=== PATIENT | female | born 1980 | race Caucasian/White ===

== ENCOUNTER 2017-02-09 22:22 | Emergency (ER) | payer MEDICAID | END 2017-02-10 00:45 | disposition home or self-care (01) | LOC: D.ER 22:22 | DX: L03.115 Cellulitis of right lower limb (principal); F17.200 Nicotine dependence, unspecified, uncomplicated; E05.00 Thyrotoxicosis with diffuse goiter without thyrotoxic crisis or storm ==

== ENCOUNTER 2019-09-16 04:38 | Emergency (ER) | payer SELFPAY ==
[~2019-09-16] VITALS: Ht 173.2 cm; Wt 64.2 kg
[2019-09-16 04:48] VITALS: Ht 173.2 cm; Wt 64.2 kg
[2019-09-16] MEDS ORDERED: IBUPROFEN800 MG PO (08:33)
[2019-09-16] MEDS ORDERED: ACETAMINOPHEN500 M1 PO (08:33)
[2019-09-16] MEDS ORDERED: KEFLEX500 MG PO (08:33)
[2019-09-16] MEDS ORDERED: CLEOCIN HCL300 MG PO (08:33)
[2019-09-16] MEDS ORDERED: CYCLOBENZAPRINE10 MG PO (08:33)
[2019-09-16 08:56] VITALS: BP 132/77
== END 2019-09-16 09:25 | disposition home or self-care (01) ==
LOC: D.ER 04:38
DX: S51.811A Laceration without foreign body of right forearm, initial encounter (principal); W19.XXXA Unspecified fall, initial encounter; F17.210 Nicotine dependence, cigarettes, uncomplicated

== ENCOUNTER 2020-05-22 17:05 | Emergency (ER) | payer MEDICAID ==
[~2020-05-22] VITALS: Ht 173.2 cm; Wt 54.5 kg
[~2020-05-22 17:05] MED LIST: ACETAMINOPHEN500 M1 PO; CLEOCIN HCL300 MG PO; CYCLOBENZAPRINE10 MG PO; IBUPROFEN800 MG PO; KEFLEX500 MG PO
[2020-05-22 17:10] VITALS: BP 109/70; Ht 173.2 cm; Wt 54.5 kg
== END 2020-05-22 17:54 | disposition left against medical advice (07) ==
LOC: D.ER 17:05
DX: L02.32 Furuncle of buttock (principal)

== ENCOUNTER 2020-07-13 21:30 | Inpatient (IN) | payer MEDICAID ==
[~2020-07-13] VITALS: Ht 173.2 cm; Wt 52.6 kg
[2020-07-13 22:30] LABS: CALC OSMOLALITY 278 mosm/kg (275-300); CALCIUM 8.2 mg/dL (8.5-10.1); CHLORIDE - SERUM 101 mmol/L (98-107); GLUCOSE 103 mg/dL (74-106); POTASSIUM - SERUM 3.3 mmol/L (3.5-5.1); SODIUM 139 mmol/L (136-145); UREA NITROGEN 14 mg/dL (7-18); eGFR NON AFRICAN AMERICAN 65 mL/min (90-120)
[2020-07-13 22:34] LABS: BASOPHILS 0.1 % (0-2); EOSINOPHILS 0.8 % (0-7); HEMATOCRIT 35.3 % (36.0-48.0); HEMOGLOBIN 12.2 g/dL (12-16); IMMATURE GRANULOCYTES 0.4 % (0-5); LYMPHOCYTES 10.5 % (15-50); MCH 30.7 pg (26.0-34.0); MCHC 34.6 g/dL (31.0-37.0); MCV 88.7 fL (80.0-100.0); MONOCYTES 8.4 % (2-11); NEUTROPHILS 79.8 % (40-80); RBC 3.98 10x6/uL (4.00-5.40); RDW 14.2 % (11.5-14.5); WBC 13.9 10x3/uL (4.8-10.8)
[2020-07-13 22:38] LABS: ALBUMIN 2.7 g/dL (3.4-5.0); ALKALINE PHOSPHATASE 121 U/L (30-120); ALT (SGPT) 91 U/L (10-68); AMYLASE - SERUM 31 U/L (25-115); BILIRUBIN - TOTAL 0.23 mg/dL (0.2-1.3); LIPASE 70 U/L (73-393); PROTEIN - SERUM 6.6 g/dL (6.4-8.2)
[2020-07-13 22:43] LABS: TROPONIN-I < 0.017 ng/mL (0.000-0.060)
[2020-07-13 22:51] LABS: PLATELET COUNT 250 10x3/uL (130-400)
[2020-07-13 23:47] LABS: HCG URINE NEGATIVE (NEGATIVE)
[2020-07-13 23:54] VITALS: BP 133/77
[2020-07-13 23:59] LABS: BILIRUBIN NEGATIVE (NEGATIVE); GLUCOSE NEGATIVE (NEGATIVE); KETONE NEGATIVE (NEGATIVE); NITRITE NEGATIVE (NEGATIVE); UROBILINOGEN NORMAL (NORMAL)
[2020-07-14] VITALS (7 sets, daily range): BP systolic 100–131; BP diastolic 58–81; Ht 173.2 cm; Wt 52.6 kg
[2020-07-14 00:03] LABS: BACTERIA MANY /hpf (NEGATIVE); EPITHELIAL CELLS 0-5 /hpf (0-5); RED CELLS - URINE 0-5 /hpf (0-5)
--- NOTE | 2020-07-14 00:05 | NUR ---
PATIENT IN WITH C/O MID ABD PAIN THAT STARTED YESTERDAY, ALSO HAS FEVER, STATES SHE INJ AND SMOKED METH THE LAST COUPLE OF DAYS. STATES HER LAST BM WAS TODAY,
--- NOTE | 2020-07-14 01:17 | NUR ---
REPORT GIVEN TO DANIELLE FLORES
--- NOTE | 2020-07-14 07:30 | NUR ---
WALKING ROUNDS COMPLETE, PT RESTING WITH EYES CLOSED, NO S/S OF PAIN OR NEEDS NOTED, SR UP X2, CALL LIGHT IN REACH, BED LOW AND LOCKED, IV INFUSING WITHOUT DIFFICULTY, SITE CLEAR, WILL CONTINUE TO MONITOR
--- NOTE | 2020-07-14 09:05 | NUR ---
GAVE PT MORPHINE 2MG FOR PAIN IN BACK, RATES OPAIN 6/10, ASSISTED PT TO BATHROOM, TOLERATED WELL, PT ALERT AND ORIENTEDX4, IV INFUSING WITHOUT DIFFICULTY, SITE CLEAR, NO OTHER NEEDS VOICED, WILL MONITOR, BED LOW AND LOCKED, SR UP X2, CALL LIGHT IN REACH
[2020-07-14] MEDS ORDERED: NEURONTIN600 MG PO (12:11)
[2020-07-14] MEDS ORDERED: SYNTHROID100 MCG PO (12:12)
--- NOTE | 2020-07-14 12:12 | NUR ---
PER PATIENT PERMISSION, I CALLED [facility] AND SPOKE TO RIC FOR HOME MEDICATIONS AND PLACED INTO THE SYSTEM.
--- NOTE | 2020-07-14 13:26 | NUR ---
TALKED WITH CLAIRE ABOUT PT HOME MEDS AND GRAM NEG RODS IN BLOOD, ORDERS TO RESTART HOME MEDS AND PT ON ROCEPHIN FOR LAB RESULTS,
--- NOTE | 2020-07-14 14:02 | NUR ---
GAVE PT MORPHINE 2MG IVP FOR PAIN, RATES PAIN6/10 IN BACK, NO OTHER NEEDS VOICED, WILL MONITOR
--- NOTE | 2020-07-14 14:41 | NUR ---
FOLLOWED UP ON PT PAIN MED, PT VOICES PAIN IS 2/10 IN HER BACK, NO OTHER NEEDS VOICED, WILL MONITOR
--- NOTE | 2020-07-14 16:16 | NUR ---
GAVE PT TYLENOL 650 MG PO FOR TEMP OF 100.9, NO OTHER NEEDS VOICED
--- NOTE | 2020-07-14 18:05 | NUR ---
PT RESTING WITH EYES CLOSED, NO S/S OF PAIN OR DISTRESS NOTED, WILL MONITOR
--- NOTE | 2020-07-14 19:38 | NUR ---
REPORT RECEIVED, WILL CNOT POC. PT A&O, UP IN BED RESTING QUIETLY WITH AT BEDSIDE. NO S/S OF DISTRESS OBSERVED. RESPIRATIONS SHALLOW WITH NO ADVENTITIOUS LUNG SOUNDS ON ROOM AIR. PT DENIES NEEDS AT THIS TIME. CALL LIGHT IN REACH, BED LOCKED AND LOWERED. ASSESSMENT COMPLETED AT THIS TIME. WILL CONT TO MONITOR.
[2020-07-15] VITALS: BP 105/64
[2020-07-15 05:18] VITALS: BP 124/79
--- NOTE | 2020-07-15 07:25 | NUR ---
WALKING ROUNDS COMPLETE, PT RESTING IN BED WITH EYES CLOSED, RESP EVEN AND UNLABORED, NO S/S OF PAIN OR NEEDS, BED LOW AND LOCKED, CALL LIGHT IN REACH, WILL CONTINUE TO MONITOR
--- NOTE | 2020-07-15 08:34 | NUR ---
gave pt scheduled meds, pt resting with no needs or pain voiced, will monitor, call light inreach,. bed low and locked, sr up x2
[2020-07-15 09:20] VITALS: BP 105/70
--- NOTE | 2020-07-15 10:54 | NUR ---
gave pt morphine 2mg ivp for pain rates pain 6/10 in back
[2020-07-15 13:53] VITALS: BP 116/81
[2020-07-15 16:00] VITALS: BP 114/76
--- NOTE | 2020-07-15 16:36 | NUR ---
gave pt morphine 2mg ivp for pain, rates pain 6/10 in back
[2020-07-15 20:45] VITALS: BP 134/76
[2020-07-16 01:23] VITALS: BP 111/68
[2020-07-16 05:44] VITALS: BP 101/64
[2020-07-16 06:22] LABS: ANION GAP 10.4 mmol/L (8-16); CALCIUM 8.2 mg/dL (8.5-10.1); CARBON DIOXIDE 25.9 mmol/L (21.0-32.0); CREATININE - SERUM 0.9 mg/dL (0.6-1.3); POTASSIUM - SERUM 3.3 mmol/L (3.5-5.1)
[2020-07-16 06:48] LABS: BASOPHILS 0.4 % (0-2); HEMOGLOBIN 11.7 g/dL (12-16); IMMATURE GRANULOCYTES 1.4 % (0-5); LYMPHOCYTES 21.9 % (15-50); MCH 30.2 pg (26.0-34.0); MCHC 33.4 g/dL (31.0-37.0); MCV 90.2 fL (80.0-100.0); MEAN PLATELET VOLUME 9.2 fL (7.4-10.4); MONOCYTES 14.7 % (2-11); NEUTROPHILS 58.6 % (40-80); RBC 3.88 10x6/uL (4.00-5.40); WBC 11.4 10x3/uL (4.8-10.8)
[2020-07-16 06:50] LABS: PLATELET COUNT 301 10x3/uL (130-400)
--- NOTE | 2020-07-16 07:33 | NUR ---
PT AWAKE AND ORIENTED, EXPLAINED THAT I/V WILL BEEP WHEN SHE BENDS HER ARM D/T LOCATION. REQUESTS EXTRA PILLOWS AND PAIN MEDICATIONS WHEN I BRING MORNING MEDS. WILL OBLIGE. CL IN REACH, SRX2.
[2020-07-16 08:19] VITALS: BP 106/59
--- NOTE | 2020-07-16 09:23 | NUR ---
PT AWAKE AND ORIETNED, TOOK MEDICATIONS WITHOUT COMPICATIONS, STATES THAT SHE IS HOPEFUL TO GO HOME TODAY SHE HAS BEEN HERE 5 DAYS AND FEELS WELL ENOUGH TO LEAVE. WILL INFORM CARDIAC CATH LAB TECHNOLOGIST. CL IN REACH,S RX2. AT BEDSIDE.
[2020-07-16 12:00] VITALS: BP 110/72
[2020-07-16 16:00] VITALS: BP 122/78
--- NOTE | 2020-07-16 16:08 | NUR ---
PT AWAKE AND ORIENTED, LYING IN BED WATCHING TV. I/V OUT/INFILTRATED. HAS LEFT ROOM. WILL REPLACE. CL INR EACH, SRX2.
--- NOTE | 2020-07-16 16:44 | NUR ---
I have reviewed this patient and I concur with the Shift Assessment completed by the Licensed Practical Nurse today this shift.
--- NOTE | 2020-07-16 18:41 | NUR ---
IV REPLACED, 22G LFA 2STICKS. CL IN REACH SRX2
[2020-07-16 22:30] VITALS: BP 117/77
[2020-07-17 08:00] VITALS: BP 102/59
[2020-07-17] MEDS ORDERED: MACROBID100 MG PO (09:27)
[2020-07-17] MEDS ORDERED: SYNTHROID100 MCG PO (09:34)
[2020-07-17] MEDS ORDERED: NEURONTIN600 MG PO (09:34)
--- NOTE | 2020-07-17 10:00 | NUR ---
PT RX WENT TO [facility]. SHE REQUESTS [facility] [address]. CALLED REQUESTED.
--- NOTE | 2020-07-17 10:14 | MORECARE ---
CASE MANAGEMENT DISCHARGE SUMMARY PATIENT: MARIANNE CHRISTENSEN UNIT: [id number] ADM DATE: 07/14/20 AGE: 39 : 78 SEX: F ROOM/BED: D.3154 AUTHOR: PIO DUBOSE PHYSICIAN: REFERRING PHYSICIAN: DARRIAN PEÑA MD DATE OF SERVICE: 07/17/20 Discharge Plan Patient Name: MARIANNE CHRISTENSEN Facility: [facility]:[place] : 1980 Planned Disposition: Home or Self Care Anticipated Discharge Date: Discharge Date: Expected LOS: Initial Reviewer: [email or web address] Initial Review Date: 07/14/2020 Generated: 07/17/20 11:14 am Comments DCP- Discharge Planning Updated by [id number]: Catia Romano on 07/17/20 9:[address] CM met with patient to complete initial dc planning assessment. CM educated patient on the CM role and verbal consent given by patient to complete assessment. CM verified patient's address, phone number, and emergency contact phone numbers. Patient lives at home with her . At discharge patient plans to return and feels this is a safe discharge. CM discussed availability of home health, rehab services, and medical equipment. Patient denied known discharge needs at this time. Declination signed. Transportation provider at discharge will be her who is at bedside. CM will continue to follow and will assist as needed with dc plans/needs. Public Policy Professor Catia Romano DCPIA - Discharge Planning Initial Assessment Updated by [email or web address]: Catia Romano on 07/17/20 10:09 am * Is the patient Alert and Oriented? Yes * How many steps to enter\exit or inside your home? 0/0 * PCP sing * Pharmacy [facility] * Preadmission Environment Home with Family * ADLs Independent * Equipment None * Community resources currently utilized None * Additional services required to return to the preadmission environment? No * Can the patient safely return to the preadmission environment? Yes * Has this patient been hospitalized within the prior 30 days at any hospital? No Coverage Notice Reviewer: [id number] - Macie Nuñezoy Notice Issued Date-Time: 07/15/2020 17:11 Notice Type: IM Discharge Notice Notice Delivered To: Patient Relationship to Patient: Self Auto Winder Name: Marianne Christensen Delivery Method: HAND - Hand Delivered Danni Days: Prior Verbal Notification: Recipient Understood Notice: Yes Recipient Signature: Yes Med Rec Note Co-signed by Attending: Coverage Notice Comment: DC IMM signed by/given to the patient. Original to chart. Reviewer: [email or web address] Efrem Romano Notice Issued Date-Time: 07/17/2020 9:40 Notice Type: Patient Choice Letter Notice Delivered To: Patient Relationship to Patient: Auto Winder Name: Delivery Method: HAND - Hand Delivered Danni Days: Prior Verbal Notification: Yes Recipient Understood Notice: Recipient Signature: Yes Med Rec Note Co-signed by Attending: Coverage Notice Comment: declination for hh Patient Name: MARIANNE CHRISTENSEN Page [phone] at 1014 All edits/amendments must be made on the electronic document DICTATION DATE: 07/17/20 1014 LAND COMMISSIONER: NIRMAL 07/17/20 1014 RPT#: [id number] DC DATE: STATUS: ADM IN [place] [address] [place] [address] END OF REPORT
--- NOTE | 2020-07-17 11:06 | NUR ---
PT ESCORTED VIA WHEELCHAIR TO POV. DRIVING. IV OUT TIP INTACT.
--- NOTE | 2020-07-20 09:19 | MORECARE ---
CASE MANAGEMENT DISCHARGE SUMMARY PATIENT: MARIANNE CHRISTENSEN UNIT: [id number] ADM DATE: 07/14/20 AGE: 39 : 78 SEX: F ROOM/BED: D.7543 AUTHOR: PIO DUBOSE PHYSICIAN: REFERRING PHYSICIAN: DARRIAN PEÑA MD DATE OF SERVICE: 07/20/20 Discharge Plan Patient Name: MARIANNE CHRISTENSEN Facility: [facility]:[place] : 1980 Planned Disposition: Home or Self Care Anticipated Discharge Date: Discharge Date: 07/17/2020 Expected LOS: Initial Reviewer: [email or web address] Initial Review Date: 07/14/2020 Generated: 07/20/20 10:19 am Comments DCP- Discharge Planning Updated by [email or web address]: Catia Romano on 07/17/20 9:[address] CM met with patient to complete initial dc planning assessment. CM educated patient on the CM role and verbal consent given by patient to complete assessment. CM verified patient's address, phone number, and emergency contact phone numbers. Patient lives at home with her . At discharge patient plans to return and feels this is a safe discharge. CM discussed availability of home health, rehab services, and medical equipment. Patient denied known discharge needs at this time. Declination signed. Transportation provider at discharge will be her who is at bedside. CM will continue to follow and will assist as needed with dc plans/needs. Rn Acute Dialysis Catia Romano DCPIA - Discharge Planning Initial Assessment Updated by [email or web address]: Catia Romano on 07/17/20 10:09 am * Is the patient Alert and Oriented? Yes * How many steps to enter\exit or inside your home? 0/0 * PCP sing * Pharmacy [facility] * Preadmission Environment Home with Family * ADLs Independent * Equipment None * Community resources currently utilized None * Additional services required to return to the preadmission environment? No * Can the patient safely return to the preadmission environment? Yes * Has this patient been hospitalized within the prior 30 days at any hospital? No Coverage Notice Reviewer: [id number] - Macie Peralta Notice Issued Date-Time: 07/15/2020 17:11 Notice Type: IM Discharge Notice Notice Delivered To: Patient Relationship to Patient: Self General Assistant Name: Marianne Christensen Delivery Method: HAND - Hand Delivered Danni Days: Prior Verbal Notification: Recipient Understood Notice: Yes Recipient Signature: Yes Med Rec Note Co-signed by Attending: Coverage Notice Comment: DC IMM signed by/given to the patient. Original to chart. Reviewer: [email or web address] Efrem Romano Notice Issued Date-Time: 07/17/2020 9:40 Notice Type: Patient Choice Letter Notice Delivered To: Patient Relationship to Patient: General Assistant Name: Delivery Method: HAND - Hand Delivered Danni Days: Prior Verbal Notification: Yes Recipient Understood Notice: Recipient Signature: Yes Med Rec Note Co-signed by Attending: Coverage Notice Comment: declination for hh Last DP export: 07/17/20 9:14 a Patient Name: MARIANNE CHRISTENSEN Page [phone] at 0919 All edits/amendments must be made on the electronic document DICTATION DATE: 07/20/20918 NAVY DIVER: NIRMAL 07/20/20918 RPT#: [id number] DC DATE:07/17/20 STATUS: DIS IN [facility] [address] [place] [address] END OF REPORT
== END 2020-07-17 11:06 | disposition home or self-care (01) | DRG 872 ==
LOC: D.ER 21:30 → D.M2 07-14 00:24 → D.ER 07-14 02:40 → D.M2 07-17 11:06
PROVIDERS: Emergency Medicine; ADMIT Legal Medicine; ATTEND Legal Medicine
DX: A41.9 Sepsis, unspecified organism (principal); N10 Acute pyelonephritis; E87.6 Hypokalemia; F15.90 Other stimulant use, unspecified, uncomplicated; Z72.0 Tobacco use